=== PATIENT | female | born 1965 | race African-American/Black ===

== ENCOUNTER 2023-03-06 22:27 | Inpatient (IN) | payer MEDICAID, OTHER ==
[~2023-03-06] VITALS: Ht 160 cm; Wt 64.4 kg
[~2023-03-06 22:27] MED LIST: IBUP-779
[2023-03-07] MEDS ORDERED: ASPIRIN 81MG TABLET PO ONE (01:00)
[2023-03-07] MEDS ORDERED: NITROGLYCERIN OINT 1GM/INCH UDPKT TD ONE (01:00)
[2023-03-07 02:35] LABS: BASOPHILS % 0.6 % (0.0-2.0); EOSINOPHILS % 2.2 % (0.0-5.0); HEMATOCRIT. 32.1 % (36.0-48.0); LYMPHOCYTES % 27.8 % (20.0-50.0); MEAN CORPUSCULAR HEMOGLOBIN 33.7 pg (28.0-32.0); MEAN CORPUSCULAR HGB CONC 34.4 g/dL (31.0-37.0); MEAN CORPUSCULAR VOLUME 98.1 fL (81.0-99.0); MEAN PLATELET VOLUME 7.5 fl (7.4-10.4); MONOCYTES % 7.9 % (2.0-8.0); NEUTROPHILS % 61.5 % (40.0-76.0); PLATELET 305 x1000/uL (130-400); RED BLOOD CELL COUNT 3.27 mill/uL (4.2-5.4); RED CELL DISTRIBUTION WIDTH 16.1 % (11.6-14.6); WHITE BLOOD COUNT 5.1 x1000/uL (4.5-11.0)
[2023-03-07 02:44] LABS: CHLORIDE 109 mEq/L (98-107); INDEX HEMOLYSI 4 (1-3); INDEX ICTERIC 1 (1-4); INDEX LIPEMIC 1 (1-3); SODIUM 138 mEq/L (136-145)
[2023-03-07 02:55] LABS: ALANINE AMINOTRANSFERASE 22 IU/L (13-61); ALBUMIN 3.1 g/dL (3.4-5.0); ASPARTATE AMINOTRANSFERASE 28 IU/L (15-37); BILIRUBIN TOTAL 0.4 mg/dL (0.1-1.0); CALCIUM 8.6 mg/dL (8.5-10.1); CARBON DIOXIDE 25 mEq/L (21-32); CREATININE 0.6 mg/dL (0.6-1.3); GLUCOSE 102 mg/dL (70-105); NT PRO B-TYPE NATRIURETIC PEP 56 pg/mL (5-125); PROTEIN TOTAL 7.7 g/dL (6.0-8.3); TROPONIN I HIGH SENSITIVITY 4 ng/L (<54); UREA NITROGEN BLOOD 11 mg/dL (7-21)
[2023-03-07 03:26] LABS: POTASSIUM 3.6 mEq/L (3.5-5.1)
[2023-03-07] MEDS ORDERED: IPRATROPIUM/ALBUTEROL 0.5-3(2.5)MG/3ML NEB HHN PRN (04:00)
[2023-03-07] MEDS ORDERED: ONDANSETRON HCL 4MG/2ML INJ IV PRN (04:00)
[2023-03-07] MEDS ORDERED: SODIUM CHLORIDE 0.9% 1,000 ML IV SCH (04:00)
[2023-03-07] MEDS ORDERED: DOCUSATE SODIUM 100MG CAPSULE PO PRN (04:00)
[2023-03-07] MEDS ORDERED: CLONIDINE 0.1MG TABLET PO PRN (04:00)
[2023-03-07] MEDS ORDERED: GUAIFENESIN 200MG/10ML SUGAR FREE UDC PO PRN (04:00)
[2023-03-07] MEDS ORDERED: MAGNESIUM/ALUMINUM HYDROXIDE/SIMETHICONE 30ML UDC PO PRN (04:00)
[2023-03-07] MEDS ORDERED: ACETAMINOPHEN 325MG TABLET PO PRN (04:00)
[2023-03-07] MEDS ORDERED: NA PHOS,M-B/NA PHOS,DI-BA ENEMA 118ML PR PRN (04:00)
[2023-03-07] MEDS ORDERED: NITROGLYCERIN 0.4MG TABLET SL SL PRN (04:15)
[2023-03-07] MEDS: PANTOPRAZOLE SODIUM 40 MG/VIAL IV SCH ×2 (05:20→08:28)
[2023-03-07 05:30] LABS: BASOPHILS % 0.4 % (0.0-2.0); EOSINOPHILS % 2.5 % (0.0-5.0); HEMATOCRIT. 30.1 % (36.0-48.0); HEMOGLOBIN. 10.4 g/dL (12.0-16.0); LYMPHOCYTES % 26.9 % (20.0-50.0); MEAN CORPUSCULAR HEMOGLOBIN 33.9 pg (28.0-32.0); MEAN CORPUSCULAR HGB CONC 34.5 g/dL (31.0-37.0); MEAN CORPUSCULAR VOLUME 98.2 fL (81.0-99.0); MEAN PLATELET VOLUME 6.9 fl (7.4-10.4); MONOCYTES % 8.8 % (2.0-8.0); NEUTROPHILS % 61.4 % (40.0-76.0); PLATELET 307 x1000/uL (130-400); RED BLOOD CELL COUNT 3.07 mill/uL (4.2-5.4); RED CELL DISTRIBUTION WIDTH 15.9 % (11.6-14.6); WHITE BLOOD COUNT 4.6 x1000/uL (4.5-11.0)
[2023-03-07 05:40] LABS: INR 0.9; PROTHROMBIN TIME 10.2 sec (9.6-11.0)
[2023-03-07 06:26] LABS: VITAMIN B12 SERUM 647 pg/mL (211-911)
[2023-03-07 06:47] LABS: CHLORIDE 109 mEq/L (98-107); INDEX HEMOLYSI 2 (1-3); INDEX ICTERIC 1 (1-4); INDEX LIPEMIC 1 (1-3); POTASSIUM 3.1 mEq/L (3.5-5.1); SODIUM 141 mEq/L (136-145)
[2023-03-07] MEDS ORDERED: IOHEXOL-350 100 ML BOTTLE ONE (06:58)
[2023-03-07 07:03] LABS: CALCIUM 8.7 mg/dL (8.5-10.1); CARBON DIOXIDE 27 mEq/L (21-32); CHOLESTEROL 133 mg/dL (<200); CREATININE 0.7 mg/dL (0.6-1.3); GLUCOSE 150 mg/dL (70-105); HDL CHOLESTEROL 77 mg/dL (40-59); LDL CHOLESTEROL 50 mg/dL (5-100); TRIGLYCERIDE 63 mg/dL (0-150); TROPONIN I HIGH SENSITIVITY 4 ng/L (<54); UREA NITROGEN BLOOD 12 mg/dL (7-21)
[2023-03-07 07:21] LABS: FOLIC ACID (FOLATE) SERUM > 20.00 ng/mL (>5.38)
[2023-03-07 08:00] LABS: CLARITY URINE TURBID (CLEAR); COLOR URINE DARK YELLOW (YELLOW); GLUCOSE URINE NEGATIVE (NEGATIVE); KETONES URINE NEGATIVE (NEGATIVE); LEUKOCYTE ESTERASE URINE NEGATIVE (NEGATIVE); NITRITE URINE NEGATIVE (NEGATIVE); OCCULT BLOOD URINE NEGATIVE (NEGATIVE); PH URINE 5.5 (4.5-8.0); PROTEIN URINE TRACE (NEGATIVE); SPECIFIC GRAVITY URINE 1.035 (1.005-1.030)
[2023-03-07 08:03] LABS: BACTERIA URINE NONE SEEN; YEAST URINE NONE SEEN
[2023-03-07 08:17] LABS: HYALINE CASTS URINE 0-5 /lpf
[2023-03-07 08:18] LABS: MUCUS URINE 3+ /lpf (< = 2+); SQUAMOUS EPITHELIAL CELL URINE 1+ /lpf (RARE/1+)
[2023-03-07 08:19] LABS: RBC URINE NONE SEEN /hpf (0-2); WBC URINE 0-2 /hpf (0-2)
[2023-03-07 08:20] LABS: CALCIUM OXALATE CRYSTALS URINE 2+ /lpf
[2023-03-07] MEDS ORDERED: POTASSIUM CHLORIDE 20MEQ TABLET SR PO NR (08:30)
[2023-03-07] MEDS: ASPIRIN 81MG EC TABLET PO SCH (08:33)
[2023-03-07] MEDS: ENOXAPARIN 40MG/0.4ML SYR SUBCUT SCH (08:33)
[2023-03-07 08:50] LABS: *AMPHETAMINES SCREEN URINE NEGATIVE (NEGATIVE); *BARBITURATES SCREEN URINE NEGATIVE (NEGATIVE); *BENZODIAZEPINES SCREEN URINE NEGATIVE (NEGATIVE); *COCAINE SCREEN URINE PRESUMTIVE POSITIVE (NEGATIVE); CANNABINOID URINE SCREEN PRESUMTIVE POSITIVE (NEGATIVE); ECSTASY MDMA SCREEN URINE NEGATIVE (NEGATIVE); METHADONE URINE SCREEN NEGATIVE (NEGATIVE); OPIATES URINE SCREEN NEGATIVE (NEGATIVE); PHENCYCLIDINE URINE SCREEN NEGATIVE (NEGATIVE)
[2023-03-07 12:00] VITALS: BP 136/86; PULSE 63; RESP 18; TEMP 97.9
[2023-03-07 13:30] VITALS: BP 118/79; PULSE 63; RESP 18; TEMP 97.9
[2023-03-07 16:00] VITALS: BP 129/63; PULSE 69; RESP 20; TEMP 98
[2023-03-07] MEDS ORDERED: FURO-152 MT (17:43)
[2023-03-07] MEDS ORDERED: ALD50 MT (17:43)
[2023-03-07] MEDS ORDERED: LOSA50TA41 MT (17:43)
[2023-03-07] MEDS ORDERED: CALC-775 MT (17:43)
[2023-03-07] MEDS ORDERED: OMEP20CA14 MT (17:43)
[2023-03-07] MEDS ORDERED: FOLI-43 MT (17:43)
[2023-03-07] MEDS ORDERED: METO-385 MT (17:43)
[2023-03-07] MEDS ORDERED: BICT1TAB PO (17:43)
[2023-03-07] MEDS ORDERED: TRAM50TA3 PO (17:43)
[2023-03-07] MEDS ORDERED: METH2.5T PO (17:43)
[2023-03-07] MEDS ORDERED: AMIT25TA9 MT (17:43)
[2023-03-07] MEDS ORDERED: LISI10TA26 MT (17:43)
[2023-03-07 20:00] VITALS: BP 130/88; PULSE 69; RESP 16; TEMP 97.9
[2023-03-08] VITALS: BP 116/80; PULSE 90; RESP 16; TEMP 97.9
[2023-03-08 04:00] VITALS: BP 112/74; PULSE 74; RESP 16; TEMP 96.9
[2023-03-08 08:00] VITALS: BP 115/76; PULSE 72; RESP 18; TEMP 97
[2023-03-08 08:29] LABS: HEMATOCRIT 32.7 % (36.0-48.0); HEMOGLOBIN 11.3 g/dL (12.0-16.0); MEAN CORPUSCULAR HEMOGLOBIN 33.7 pg (28.0-32.0); MEAN CORPUSCULAR HGB CONC 34.4 g/dL (31.0-37.0); MEAN CORPUSCULAR VOLUME 97.8 fL (81.0-99.0); PLATELET 330 x1000/uL (130-400); RED BLOOD CELL COUNT 3.34 mill/uL (4.2-5.4); RED CELL DISTRIBUTION WIDTH 16.2 % (11.6-14.6); WHITE BLOOD COUNT 3.5 x1000/uL (4.5-11.0)
[2023-03-08] MEDS: ASPIRIN 81MG EC TABLET PO SCH (08:35)
[2023-03-08] MEDS: ENOXAPARIN 40MG/0.4ML SYR SUBCUT SCH (08:35)
[2023-03-08] MEDS: PANTOPRAZOLE SODIUM 40 MG/VIAL IV SCH (08:36)
[2023-03-08 08:42] LABS: CHLORIDE 107 mEq/L (98-107); INDEX HEMOLYSI 1 (1-3); INDEX ICTERIC 1 (1-4); INDEX LIPEMIC 1 (1-3); POTASSIUM 3.8 mEq/L (3.5-5.1); SODIUM 137 mEq/L (136-145)
[2023-03-08 08:54] LABS: CALCIUM 8.9 mg/dL (8.5-10.1); CARBON DIOXIDE 26 mEq/L (21-32); CREATININE 0.7 mg/dL (0.6-1.3); GLUCOSE 105 mg/dL (70-105); PHOSPHORUS 4.3 mg/dL (2.5-4.9); T4 FREE 0.98 ng/dL (0.76-1.46); UREA NITROGEN BLOOD 11 mg/dL (7-21)
[2023-03-08 10:45] VITALS: BP 115/76; PULSE 72; TEMP 97; O2SAT 99
[2023-03-08 12:00] VITALS: BP 129/88; PULSE 84; RESP 20; TEMP 97.9
== END 2023-03-08 13:30 | disposition home or self-care (01) | DRG 198 ==
LOC: ER 22:27 → 8WST 03-07 05:16 → EDBEDREQTM 03-07 05:33 → EDBEDREQ 03-07 05:33
PROVIDERS: ADMIT Internal Medicine; ATTEND Internal Medicine
DX: I24.8 Other forms of acute ischemic heart disease (principal); E44.1 Mild protein-calorie malnutrition; I11.0 Hypertensive heart disease with heart failure; I50.9 Heart failure, unspecified; I25.10 Atherosclerotic heart disease of native coronary artery without angina pectoris; D63.8 Anemia in other chronic diseases classified elsewhere; M06.9 Rheumatoid arthritis, unspecified; Z63.4 Disappearance and death of family member; Z79.82 Long term (current) use of aspirin; Z96.641 Presence of right artificial hip joint; Z90.5 Acquired absence of kidney; Z90.710 Acquired absence of both cervix and uterus; Z68.25 Body mass index [BMI] 25.0-25.9, adult
CPT/HCPCS: 36415; 71045; 71275; 80048; 80053; 80061; 80305; 81003; 82607; 82746; 83036; 83605; 83735; 83880; 84100; 84439; 84443; 84484; 85025; 85027; 85379; 93005; 93306; 93970; 99285; C9113; J1650; Q9967